=== PATIENT | male | born 1960 | race Caucasian/White ===

== ENCOUNTER 2023-08-24 20:32 | Emergency (ER) | payer MEDICAID ==
[~2023-08-24] VITALS: Ht 175.3 cm; Wt 79.0 kg
[2023-08-24 21:03] VITALS: O2SAT 97
[2023-08-24 21:52] VITALS: TEMP 97.7
[2023-08-24 21:52] LABS: BASOPHILS % 0.2 % (0.0-2.0); EOSINOPHILS % 3.3 % (0.0-5.0); HEMATOCRIT. 38.2 % (42.0-52.0); HEMOGLOBIN. 13.5 g/dL (14.0-18.0); LYMPHOCYTES % 29.6 % (20.0-50.0); MEAN CORPUSCULAR HEMOGLOBIN 31.4 pg (28.0-32.0); MEAN CORPUSCULAR HGB CONC 35.2 g/dL (31.0-37.0); MEAN CORPUSCULAR VOLUME 89.3 fL (80.0-94.0); MEAN PLATELET VOLUME 7.4 fl (7.4-10.4); MONOCYTES % 5.6 % (2.0-8.0); NEUTROPHILS % 61.3 % (40.0-76.0); PLATELET 169 x1000/uL (130-400); RED BLOOD CELL COUNT 4.28 mill/uL (4.7-6.1); RED CELL DISTRIBUTION WIDTH 12.6 % (11.6-14.6); WHITE BLOOD COUNT 9.4 x1000/uL (4.5-11.0)
[2023-08-24 21:59] LABS: CHLORIDE 96 mEq/L (98-107); POTASSIUM 3.7 mEq/L (3.5-5.1); SODIUM 130 mEq/L (136-145)
[2023-08-24 22:00] LABS: CARBON DIOXIDE 20 mEq/L (21-32)
[2023-08-24 22:01] LABS: CALCIUM 9.5 mg/dL (8.7-10.4)
[2023-08-24 22:05] LABS: CREATININE 1.8 mg/dL (0.6-1.3); GLUCOSE 122 mg/dL (70-105)
[2023-08-24 22:06] LABS: TROPONIN I HIGH SENSITIVITY < 4 ng/L (3.0-53); UREA NITROGEN BLOOD 16 mg/dL (9-23)
[2023-08-24] MEDS: SODIUM CHLORIDE 0.9% 1,000 ML IV ONE (22:17)
[2023-08-25 00:20] VITALS: BP 107/64; PULSE 82; RESP 20
== END 2023-08-25 00:25 | disposition home or self-care (01) ==
LOC: ER 20:32
DX: R55 Syncope and collapse (principal); R42 Dizziness and giddiness; E11.9 Type 2 diabetes mellitus without complications; I10 Essential (primary) hypertension
CPT/HCPCS: 99284; 96360; 71045; 80048; 85025; 84484; 36415; J7030